=== PATIENT | female | born 1985 | race Two or more races ===

== ENCOUNTER 2016-10-18 09:27 | Outpatient (CLI) | payer SELFPAY | END 2016-10-18 09:28 | disposition home or self-care (01) | DX: E11.9 Type 2 diabetes mellitus without complications (principal) ==

== ENCOUNTER 2016-11-27 22:04 | Emergency (ER) | payer SELFPAY ==
[2016-11-27] MEDS ORDERED: KETOROLAC 30 MG/ML VIAL ONE (22:57)
[2016-11-27] MEDS ORDERED: ONDANSETRON 4 MG/2 ML VIAL ONE (22:57)
[2016-11-27] MEDS ORDERED: SODIUM CHLORIDE 0.9% 1,000 ML IV ONE (22:58)
[2016-11-27] MEDS ORDERED: KETOROLAC 60 MG/2 ML VIAL IVP STA (22:58)
[2016-11-27] MEDS ORDERED: ONDANSETRON 4 MG/2 ML VIAL IVP STA (22:58)
== END 2016-11-28 00:48 | disposition home or self-care (01) ==
DX: K80.80 Other cholelithiasis without obstruction (principal)

== ENCOUNTER 2017-02-12 07:17 | Outpatient (CLI) | payer SELFPAY | END 2017-02-12 23:59 | DX: E11.9 Type 2 diabetes mellitus without complications (principal) ==

== ENCOUNTER → 2017-05-17 | Outpatient (CLI) | payer SELFPAY ==
[2017-05-17 19:15] LABS: CREATININE 0.6 mg/dL (0.4-1.0); POTASSIUM 3.9 mmol/L (3.5-5.0)
[2017-05-17 19:16] LABS: HEMOGLOBIN A1C 0.76 g/dL
== END ==
LOC: LAB.N 08:00
PROVIDERS: ATTEND Family Medicine
DX: E11.9 Type 2 diabetes mellitus without complications (principal)
CPT/HCPCS: 36415; 80048; 83036

== ENCOUNTER 2017-05-30 13:29 | Outpatient (CLI) | payer OTHER ==
--- NOTE | 2017-05-30 15:40 | Ultrasound Report ---
RIGHT UPPER QUADRANT ULTRASOUND: 05/30/2017 CLINICAL INDICATION: Pain. COMPARISON: Preoperative ultrasound of 11/27/2016. TECHNIQUE: Real-time scanning was performed with appeals representative static images obtained. FINDINGS: The liver measures 17.1 cm. Hepatic echotexture is increased, compatible with fatty infilt ration. The common bile duct measures 4 mm. The gallbladder is surgically absent. The right kidney me asures 13.6 cm, and demonstrates no hydronephrosis. No free fluid is present. IMPRESSION: CHANGES OF CHOLECYSTECTOMY. NO EVIDENCE OF BILIARY DILATATION. FATTY INFILTRATION OF THE LIVER. JOB #: [id number] EXT JOB #:[id number]
== END 2017-05-30 13:30 | disposition home or self-care (01) ==
LOC: DI 13:29
PROVIDERS: ATTEND Family Medicine
DX: R10.11 Right upper quadrant pain (principal); K76.0 Fatty (change of) liver, not elsewhere classified; Z90.49 Acquired absence of other specified parts of digestive tract
CPT/HCPCS: 76705

== ENCOUNTER 2017-10-02 08:00 | Outpatient (CLI) | payer SELFPAY ==
[2017-10-02 19:13] LABS: CREATININE 0.6 mg/dL (0.4-1.0); POTASSIUM 4.1 mmol/L (3.5-5.0)
[2017-10-02 20:06] LABS: HEMOGLOBIN A1C 0.78 g/dL
== END 2017-10-02 08:01 | disposition home or self-care (01) ==
LOC: LAB.N 08:00
PROVIDERS: ATTEND Family Medicine
DX: E11.9 Type 2 diabetes mellitus without complications (principal)
CPT/HCPCS: 36415; 80048; 83036

== ENCOUNTER 2017-10-09 11:25 | Outpatient (CLI) | payer SELFPAY ==
[2017-10-09 19:10] LABS: ALBUMIN 3.9 g/dL (3.2-5.5); ALBUMIN/GLOBULIN RATIO 1.4 (1.0-2.2); BILIRUBIN,TOTAL 0.5 mg/dL (0.2-1.0); CREATININE 0.5 mg/dL (0.4-1.0); TOTAL PROTEIN 6.7 g/dL (6.7-8.2)
[2017-10-09 19:19] LABS: BASOPHILS % (AUTO) 0.5 %; EOSINOPHILS # (AUTO) 0.1 10^3/uL (0.0-0.7); EOSINOPHILS % (AUTO) 2.2 %; HGB - HEMOGLOBIN 13.4 g/dL (12.0-16.0); LYMPHOCYTES # (AUTO) 2.3 10^3/uL (1.5-3.5); LYMPHOCYTES % (AUTO) 33.8 %; MEAN CORPUSCULAR HEMOGLOBIN 28.9 pg (27.0-31.0); MEAN CORPUSCULAR HGB CONC 33.1 g/dL (32.0-36.0); MEAN CORPUSCULAR VOLUME 87.4 fL (81.0-99.0); MEAN PLATELET VOLUME 8.8 fL (7.9-10.8); MONOCYTES # (AUTO) 0.4 10^3/uL (0.0-1.0); MONOCYTES % (AUTO) 6.5 %; NEUTROPHILS # (AUTO) 3.9 10^3/uL (1.5-6.6); PLT - PLATELET COUNT 212 10^3/uL (130-450); RED BLOOD COUNT 4.63 10^6/uL (4.20-5.40); RED CELL DISTRIBUTION WIDTH 14.3 % (12.0-15.0); WHITE BLOOD COUNT 6.8 x10^3/uL (4.8-10.8)
== END 2017-10-09 11:26 | disposition home or self-care (01) ==
LOC: LAB.N 11:25
PROVIDERS: ATTEND Family Medicine
DX: R10.11 Right upper quadrant pain (principal)
CPT/HCPCS: 36415; 80053; 82150; 83690; 85025; 85651

== ENCOUNTER 2018-01-09 08:00 | Outpatient (CLI) | payer SELFPAY ==
[2018-01-09 19:15] LABS: CREATININE 0.6 mg/dL (0.4-1.0)
[2018-01-09 19:22] LABS: HB2 TOTAL 15.4 g/dL; HEMOGLOBIN A1C 0.84 g/dL; HEMOGLOBIN A1C % 7.1 % (4.6-6.2)
== END 2018-01-09 08:01 | disposition home or self-care (01) ==
LOC: LAB.N 08:00
PROVIDERS: ATTEND Family Medicine
DX: E11.9 Type 2 diabetes mellitus without complications (principal)
CPT/HCPCS: 36415; 80048; 83036

== ENCOUNTER 2018-02-04 20:59 | Outpatient (CLI) | payer SELFPAY ==
--- NOTE | 2018-02-05 09:45 | Ultrasound Report ---
PELVIC ULTRASOUND: 02/04/2018 CLINICAL INDICATION: Pelvic pain. COMPARISON: 03/05/2016. Transabdominal pelvic ultrasound performed for global evaluation. Transvaginal pelvic ultrasound performed for detailed evaluation. Real-time scanning performed and static images obtained. FINDINGS: The uterus is anteverted, measuring 9.6 x 6.2 x 3.3 cm. The endometrium measures 6 mm. No focal myometrial lesion is present. The ovaries are normal, with the right measuring 3.4 x 3.3 x 2.6 cm, and the left measuring 3.4 x 2.9 x 2.7 cm. No free fluid is present. IMPRESSION: NORMAL PELVIC ULTRASOUND. TD: 02/05/2018 09:44
== END 2018-02-04 21:00 | disposition home or self-care (01) ==
LOC: DI 20:59
PROVIDERS: ATTEND Obstetrics & Gynecology
DX: R10.2 Pelvic and perineal pain (principal)
CPT/HCPCS: 76830; 76856

== ENCOUNTER 2018-04-18 08:00 | Outpatient (CLI) | payer SELFPAY ==
[2018-04-18 13:07] LABS: CALCIUM 8.7 mg/dL (8.5-10.3); CREATININE 0.5 mg/dL (0.4-1.0)
[2018-04-18 13:10] LABS: HB2 TOTAL 14.6 g/dL; HEMOGLOBIN A1C 0.71 g/dL; HEMOGLOBIN A1C % 6.6 % (4.6-6.2)
== END 2018-04-18 08:01 | disposition home or self-care (01) ==
LOC: LAB.N 08:00
PROVIDERS: ATTEND Family Medicine
DX: F41.8 Other specified anxiety disorders (principal); E11.9 Type 2 diabetes mellitus without complications
CPT/HCPCS: 36415; 80048; 83036

== ENCOUNTER 2018-07-09 18:48 | Outpatient (CLI) | payer SELFPAY ==
--- NOTE | 2018-07-09 20:24 | Ultrasound Report ---
Reason: ENCOUNTER FOR ,RESULT POSITIVE/PT IS BLEE Procedure Date: 07/09/2018 Accession Number: [id number] / [id number] Procedure: US - OB First Trimester CPT Code: FULL RESULT: EXAM: FIRST TRIMESTER OBSTETRIC ULTRASOUND (Less than 11 weeks) EXAM DATE: 07/09/2018 08:00 PM. CLINICAL HISTORY: , vaginal bleeding. LMP: Unknown. COMPARISONS: None. TECHNIQUE: Transabdominal and transvaginal ultrasound examination with static image documentation. ASSESSMENT: Gestational Sac: Single intrauterine. Mean gestational sac diameter: 12 mm Embryo: CRL (crown-rump length) 6 mm = 6 weeks 2 days. Cardiac activity: 169 beats per minute. Yolk sac: 3 mm. Amniotic fluid: Not accurately assessed at this gestational age. Early placenta: Not visible at this gestational age. Other: No perigestational fluid collection demonstrated. MATERNAL STRUCTURES: Uterus: Anteverted. Unremarkable. Cervix: Closed. Right Ovary/Adnexa: Unremarkable. Left Ovary/Adnexa: Unremarkable. Free Fluid: None. Other: None. IMPRESSION: Single live intrauterine gestation. [place] Brow-rump length of 0.6 cm corresponds to an estimated gestational age by ultrasound of 6 weeks 2 days. heart rate is 169 bpm. No significant perigestational or adnexal abnormalities are seen. RADIA
== END 2018-07-09 18:49 | disposition home or self-care (01) ==
LOC: DI 18:48
PROVIDERS: ATTEND Nurse Practitioner Obstetrics & Gynecology
DX: Z32.01 Encounter for pregnancy test, result positive (principal)
CPT/HCPCS: 76801; 76817

== ENCOUNTER 2018-07-23 08:00 | Outpatient (CLI) | payer SELFPAY ==
[2018-07-23 19:06] LABS: ALBUMIN 3.6 g/dL (3.2-5.5); ALBUMIN/GLOBULIN RATIO 1.2 (1.0-2.2); ALKALINE PHOSPHATASE 57 IU/L (42-121); ALT ALANINE AMINOTRANSFERASE 71 IU/L (10-60); AST ASPARTATE AMINOTRANSFERASE 46 IU/L (10-42); BILIRUBIN,TOTAL 0.6 mg/dL (0.2-1.0); BUN - BLOOD UREA NITROGEN 7 mg/dL (6-20); CALCIUM 8.7 mg/dL (8.5-10.3); CARBON DIOXIDE - CO2 24 mmol/L (21-32); CHLORIDE 103 mmol/L (101-111); CHOLESTEROL 179 mg/dL; CREATININE 0.4 mg/dL (0.4-1.0); GFR - MDRD 184 (>89); GLUCOSE 94 mg/dL (70-100); HDL CHOLESTEROL 60 mg/dL; LDL CHOLESTEROL,CALCULATED 93 mg/dL; LDL/HDL RATIO 1.6 (<4.4); SODIUM 135 mmol/L (135-145); TOTAL PROTEIN 6.7 g/dL (6.7-8.2); VLDL CHOLESTEROL 26 mg/dL
[2018-07-23 19:34] LABS: HB2 TOTAL 13.3 g/dL; HEMOGLOBIN A1C 0.69 g/dL; HEMOGLOBIN A1C % 6.9 % (4.6-6.2)
== END 2018-07-23 08:01 | disposition home or self-care (01) ==
LOC: LAB.N 08:00
PROVIDERS: ATTEND Family Medicine
DX: E11.9 Type 2 diabetes mellitus without complications (principal); E66.9 Obesity, unspecified
CPT/HCPCS: 36415; 80053; 80061; 83036; 83721

== ENCOUNTER 2018-08-08 16:08 | Outpatient (CLI) | payer MEDICAID ==
[2018-08-08 16:33] LABS: BASOPHILS # (AUTO) 0.1 10^3/uL (0.0-0.1); EOSINOPHILS # (AUTO) 0.1 10^3/uL (0.0-0.7); EOSINOPHILS % (AUTO) 1.3 %; HGB - HEMOGLOBIN 12.9 g/dL (12.0-16.0); LYMPHOCYTES # (AUTO) 2.3 10^3/uL (1.5-3.5); LYMPHOCYTES % (AUTO) 29.4 %; MEAN CORPUSCULAR HEMOGLOBIN 29.5 pg (27.0-31.0); MEAN CORPUSCULAR HGB CONC 33.5 g/dL (32.0-36.0); MEAN PLATELET VOLUME 7.7 fL (7.9-10.8); MONOCYTES # (AUTO) 0.4 10^3/uL (0.0-1.0); MONOCYTES % (AUTO) 5.4 %; NEUTROPHILS # (AUTO) 4.8 10^3/uL (1.5-6.6); NEUTROPHILS % (AUTO) 62.9 %; PLT - PLATELET COUNT 217 10^3/uL (130-450); RED BLOOD COUNT 4.37 10^6/uL (4.20-5.40); RED CELL DISTRIBUTION WIDTH 14.4 % (12.0-15.0); WHITE BLOOD COUNT 7.7 x10^3/uL (4.8-10.8)
[2018-08-08 16:34] LABS: BILIRUBIN,URINE NEGATIVE (NEGATIVE); GLUCOSE, URINE (UA) NEGATIVE (NEGATIVE); KETONES,URINE (UA) NEGATIVE (NEGATIVE); LEUKOCYTE ESTERASE, URINE NEGATIVE (NEGATIVE); NITRITE,URINE NEGATIVE (NEGATIVE); OCCULT BLOOD,URINE NEGATIVE (NEGATIVE); PH,URINE 6.5 PH (5.0-7.5); PROTEIN,URINE NEGATIVE (NEGATIVE); UROBILINOGEN,URINE 0.2 (NORMAL) E.U./dL (NORMAL)
[2018-08-08 16:56] LABS: CLARITY,URINE CLEAR (CLEAR)
[2018-08-08 17:06] LABS: BACTERIA,URINE None Seen /HPF (None Seen); RBC,URINE 0-5 /HPF (0-5); SQUAMOUS EPITHELIAL CELL,UR NONE SEEN (<= Few)
[2018-08-08 17:14] LABS: THYROID STIMULATING HORMONE 1.72 uIU/mL (0.34-5.60)
[2018-08-08 17:16] LABS: FREE T4 (FREE THYROXINE) 0.65 ng/dL (0.58-1.64)
[2018-08-08 17:57] LABS: FREE T3 3.06 pg/mL (2.5-3.9)
[2018-08-08 19:28] LABS: HB2 TOTAL 13.2 g/dL; HEMOGLOBIN A1C 0.6 g/dL; HEMOGLOBIN A1C % 6.3 % (4.6-6.2)
[2018-08-09 11:27] LABS: HEPATITIS B SURFACE ANTIGEN NON-REACTIVE (NON-REACTIVE)
[2018-08-09 12:43] LABS: HIV AG/AB 4TH GEN NON-REACTIVE (NON-REACTIVE)
== END 2018-08-08 16:09 | disposition home or self-care (01) ==
LOC: LAB 16:08
PROVIDERS: ATTEND Obstetrics & Gynecology
DX: Z36.9 Encounter for antenatal screening, unspecified (principal); O24.111 Pre-existing type 2 diabetes mellitus, in pregnancy, first trimester; Z13.79 Encounter for other screening for genetic and chromosomal anomalies
CPT/HCPCS: 36415; 81001; 81599; 83036; 84439; 84443; 84481; 85025; 86592; 86762; 86850; 86900; 86901; 87340; 87389

== ENCOUNTER 2018-08-09 09:45 | Outpatient (CLI) | payer MEDICAID | END 2018-08-09 09:46 | disposition home or self-care (01) | LOC: LAB 09:45 | PROVIDERS: ATTEND Obstetrics & Gynecology | DX: O24.111 Pre-existing type 2 diabetes mellitus, in pregnancy, first trimester (principal); Z36.9 Encounter for antenatal screening, unspecified | CPT/HCPCS: 36415; 82947 ==

== ENCOUNTER 2018-09-13 13:08 | Outpatient (CLI) | payer SELFPAY | END 2018-09-13 13:09 | disposition home or self-care (01) | LOC: LAB 13:08 | PROVIDERS: ATTEND Obstetrics & Gynecology | DX: Z13.79 Encounter for other screening for genetic and chromosomal anomalies (principal) | CPT/HCPCS: 36415; 81599; 82677; 84163; 84702; 86336 ==

== ENCOUNTER 2018-10-23 12:34 | Outpatient (CLI) | payer OTHER ==
--- NOTE | 2018-10-23 16:03 | Ultrasound Report ---
Reason: DIABETES MELLITUS, PREGESTATIONAL Procedure Date: 10/23/2018 Accession Number: [id number] / [id number] Procedure: US - OB Detailed Eval CPT Code: FULL RESULT: EXAM: COMPLETE OBSTETRICAL ULTRASOUND EXAM DATE: 10/23/2018 03:36 PM. CLINICAL HISTORY: anatomic survey. LMP 05/29/2018 COMPARISON: 08/09/2018. TECHNIQUE: Real-time sonographic evaluation of the fetus performed by the bench chemist. Multiple event representative static images were saved for review. Additional transvaginal imaging to more accurately evaluate cervical length/placental position/etc. DATING: Established EGA 21 weeks 0 days with KONSTANTIN 03/05/2019 based on LMP. EGA 21 weeks 3 days with KONSTANTIN 03/02/2019 based on first ultrasound. EGA 21 weeks 1 day with KONSTANTIN 03/04/2019 based on the current ultrasound. GENERAL EVALUATION [place] . Cardiac activity: 148 bpm. movement: Present Presentation: Cephalic. Placenta: Posterior position. No evidence for previa. Umbilical cord: 3 vessel cord. Central placental cord origin. Amniotic fluid: Subjectively normal. MVP 5.3 cm. BIOMETRY Bi-Parietal Diameter (BPD): 5.1 cm, 21 weeks 2 days Head Circumference (HC): 19.2 cm, 21 weeks 2 days Abdominal Circumference (AC): 16.5 cm, 21 weeks 3 days Femur Length (FL): 3.4 cm, 20 weeks 5 days Estimated Weight: 408 grams. ANATOMY The intracranial structures, profile, face/nose/lips, spine, 4 chamber heart and outflow tracts, stomach, abdominal wall and cord insertion, diaphragm, kidneys, bladder, and extremities were imaged and demonstrate no abnormality. MATERNAL STRUCTURES Uterus: Unremarkable. Cervix: Long and closed. Transabdominal length 4.14 cm. Right ovary/adnexa: Unremarkable. Left ovary/adnexa: Unremarkable. Free fluid: None. IMPRESSION: 1. [place] intrauterine with gestational age 21 weeks 0 days based on LMP. 2. Estimated weight is within expected limits for assigned dating. 3. Normal anatomic survey. No anatomic abnormalities are detected at this time. RADIA
== END 2018-10-23 12:35 | disposition home or self-care (01) ==
LOC: DI 12:34
PROVIDERS: ATTEND Obstetrics & Gynecology
DX: O24.112 Pre-existing type 2 diabetes mellitus, in pregnancy, second trimester (principal); E11.9 Type 2 diabetes mellitus without complications; Z3A.21 21 weeks gestation of pregnancy
CPT/HCPCS: 76811

== ENCOUNTER 2018-10-30 10:28 | Outpatient (CLI) | payer SELFPAY ==
[2018-10-30 13:09] LABS: ALBUMIN 3.2 g/dL (3.2-5.5); BILIRUBIN,TOTAL 0.3 mg/dL (0.2-1.0); CREATININE 0.4 mg/dL (0.4-1.0); TOTAL PROTEIN 6.4 g/dL (6.7-8.2)
[2018-10-30 13:25] LABS: CALCIUM 8.8 mg/dL (8.5-10.3)
[2018-10-31 13:47] LABS: HEPATITIS C ANTIBODY NON-REACTIVE (NON-REACTIVE)
[2018-10-31 14:12] LABS: HEPATITIS B SURFACE ANTIGEN NON-REACTIVE (NON-REACTIVE)
[2018-10-31 19:39] LABS: HB2 TOTAL 12.7 g/dL; HEMOGLOBIN A1C 0.41 g/dL; HEMOGLOBIN A1C % 5.1 % (4.6-6.2)
== END 2018-10-30 23:59 | disposition home or self-care (01) ==
LOC: LAB.N 10:28
PROVIDERS: ATTEND Physician Assistant Medical
DX: R74.0 Nonspecific elevation of levels of transaminase and lactic acid dehydrogenase [LDH] (principal); E11.9 Type 2 diabetes mellitus without complications
CPT/HCPCS: 36415; 80053; 83036; 83540; 84466; 86317; 86704; 86709; 86803; 87340

== ENCOUNTER 2019-01-06 08:36 | Outpatient (CLI) | payer MEDICAID ==
[2019-01-06 09:11] VITALS: BP 117/72
== END 2019-01-06 09:45 | disposition home or self-care (01) ==
LOC: WFO 08:36 → FBP 08:39 → WFO 09:45
PROVIDERS: ATTEND Obstetrics & Gynecology
DX: O24.419 Gestational diabetes mellitus in pregnancy, unspecified control (principal); R10.2 Pelvic and perineal pain
CPT/HCPCS: 59025; 87480; 87510; 87660

== ENCOUNTER 2019-01-06 11:05 | Outpatient (CLI) | payer MEDICAID | END 2019-01-06 23:59 | disposition home or self-care (01) | LOC: LAB.R 11:05 | PROVIDERS: ATTEND Obstetrics & Gynecology | DX: R10.2 Pelvic and perineal pain (principal) | CPT/HCPCS: 87480; 87510; 87660 ==

== ENCOUNTER 2019-01-13 08:34 | Outpatient (CLI) | payer MEDICAID ==
[2019-01-13 08:43] VITALS: BP 127/81
== END 2019-01-13 09:32 | disposition home or self-care (01) ==
LOC: WFO 08:34 → FBP 08:36 → WFO 09:32
PROVIDERS: ATTEND Obstetrics & Gynecology
DX: O24.419 Gestational diabetes mellitus in pregnancy, unspecified control (principal); Z3A.32 32 weeks gestation of pregnancy
CPT/HCPCS: 59025

== ENCOUNTER 2019-01-20 08:59 | Outpatient (CLI) | payer MEDICAID ==
[2019-01-20 10:30] VITALS: BP 118/83
== END 2019-01-20 10:25 | disposition home or self-care (01) ==
LOC: WFO 08:59 → FBP 09:00 → WFO 10:25
PROVIDERS: ATTEND Obstetrics & Gynecology
DX: O24.419 Gestational diabetes mellitus in pregnancy, unspecified control (principal); Z3A.33 33 weeks gestation of pregnancy
CPT/HCPCS: 59025

== ENCOUNTER 2019-01-27 08:54 | Outpatient (CLI) | payer MEDICAID ==
[2019-01-27 09:12] VITALS: BP 133/80
== END 2019-01-27 09:35 | disposition home or self-care (01) ==
LOC: WFO 08:54 → FBP 08:55 → WFO 09:35
PROVIDERS: ATTEND Obstetrics & Gynecology
DX: O24.419 Gestational diabetes mellitus in pregnancy, unspecified control (principal); Z3A.34 34 weeks gestation of pregnancy
CPT/HCPCS: 59025

== ENCOUNTER 2019-02-03 08:57 | Outpatient (CLI) | payer MEDICAID ==
[2019-02-03 09:15] VITALS: BP 133/83
--- NOTE | 2019-02-26 11:47 | PROCEDURE REPORT ---
- HPI Diagnosis/Indication for NST: Gestational Diabetes Current EDU 03/05/19 Gestation 35 Weeks and 5 Days 5 Para 4 Vital Signs Temperature 98.8 F 02/03/19 09:10 Heart Rate 72 02/03/19 09:10 Respiratory Rate 18 02/03/19 09:10 Blood Pressure 133/83 H 02/03/19 09:10 O2 Saturation 100 02/03/19 09:10 Temperature 98.8 F 02/03/19 09:10 Heart Rate 72 02/03/19 09:10 Respiratory Rate 18 02/03/19 09:10 Blood Pressure 133/83 H 02/03/19 09:10 O2 Saturation 100 02/03/19 09:10 - NST Procedure NST Procedure Start Date 02/03/19 Start Time 09:06 Stop Time 09:36 Vibroacoustic Stimulation Used No Patient States Movement Yes - Results and Plan Findings/Impression: Category 1 NST Plan: Routine care for A2GDM
== END 2019-02-03 09:45 | disposition home or self-care (01) ==
LOC: WFO 08:57 → FBP 08:59 → WFO 09:45
PROVIDERS: ATTEND Obstetrics & Gynecology
DX: O24.419 Gestational diabetes mellitus in pregnancy, unspecified control (principal); Z3A.35 35 weeks gestation of pregnancy
CPT/HCPCS: 59025

== ENCOUNTER 2019-02-03 15:40 | Outpatient (CLI) | payer MEDICAID ==
[2019-02-03] MEDS ORDERED: TERBUTALINE 1 MG/ML VIAL SUBQ SCH (16:19)
[2019-02-03 17:22] LABS: BILIRUBIN,URINE NEGATIVE (NEGATIVE); GLUCOSE, URINE (UA) NEGATIVE (NEGATIVE); KETONES,URINE (UA) NEGATIVE (NEGATIVE); LEUKOCYTE ESTERASE, URINE TRACE (NEGATIVE); NITRITE,URINE NEGATIVE (NEGATIVE); OCCULT BLOOD,URINE NEGATIVE (NEGATIVE); PROTEIN,URINE NEGATIVE (NEGATIVE); UROBILINOGEN,URINE 0.2 (NORMAL) E.U./dL (NORMAL)
[2019-02-03 17:24] LABS: CLARITY,URINE CLEAR (CLEAR)
[2019-02-03 17:33] VITALS: BP 132/76
[2019-02-03 17:34] LABS: RBC,URINE None Seen /HPF (0-5); SQUAMOUS EPITHELIAL CELL,UR MOD Squamous (<= Few)
[2019-02-03 17:35] LABS: BACTERIA,URINE None Seen /HPF (None Seen)
--- NOTE | 2019-02-06 07:49 | PROCEDURE REPORT ---
- HPI Diagnosis/Indication for NST: Pre- Diabetes Current EDU 03/05/19 Gestation 35 Weeks and 5 Days 5 Para 4 Vital Signs Temperature 98.6 F 02/03/19 15:57 Heart Rate 77 02/03/19 15:57 Respiratory Rate 20 02/03/19 15:57 Blood Pressure 155/79 H 02/03/19 15:57 O2 Saturation 100 02/03/19 15:57 Temperature 98.6 F 02/03/19 15:57 Heart Rate 79 02/03/19 17:33 Respiratory Rate 18 02/03/19 17:33 Blood Pressure 132/76 H 02/03/19 17:33 O2 Saturation 99 02/03/19 17:33 - NST Procedure NST Procedure Start Time 09:06 Stop Time 09:36 - Results and Plan Findings/Impression: Category 1 UC 3-4 in 10min Plan: Pt seen and evaluated by Dr. Galindo. Terbutaline given due to UC at 35th week. Observed and UC ceased.
--- NOTE | 2019-02-06 08:04 | PROCEDURE REPORT ---
- HPI Diagnosis/Indication for NST: Gestational Diabetes Current EDU 03/05/19 Gestation 35 Weeks and 5 Days 5 Para 4 Vital Signs Temperature 98.6 F 02/03/19 15:57 Heart Rate 77 02/03/19 15:57 Respiratory Rate 20 02/03/19 15:57 Blood Pressure 155/79 H 02/03/19 15:57 O2 Saturation 100 02/03/19 15:57 Temperature 98.6 F 02/03/19 15:57 Heart Rate 79 02/03/19 17:33 Respiratory Rate 18 02/03/19 17:33 Blood Pressure 132/76 H 02/03/19 17:33 O2 Saturation 99 02/03/19 17:33 - NST Procedure NST Procedure Start Time 09:06 Stop Time 09:36 - Results and Plan Findings/Impression: Category 1 NST [place] neg Plan: routine care
== END 2019-02-03 17:45 | disposition home or self-care (01) ==
LOC: WFO 15:40 → FBP 15:41 → WFO 17:45
PROVIDERS: ATTEND Obstetrics & Gynecology
DX: O24.313 Unspecified pre-existing diabetes mellitus in pregnancy, third trimester (principal); O47.1 False labor at or after 37 completed weeks of gestation; Z3A.35 35 weeks gestation of pregnancy
CPT/HCPCS: 59025; 81001; 82731; 87086; 96372; 99213

== ENCOUNTER 2019-02-10 08:56 | Outpatient (CLI) | payer MEDICAID ==
[2019-02-10 09:40] VITALS: BP 133/80
--- NOTE | 2019-02-10 10:30 | Ultrasound Report ---
Reason: decreased movement Procedure Date: 02/10/2019 Accession Number: [id number] / [id number] Procedure: US - OB Limited CPT Code: FULL RESULT: EXAM: LIMITED OBSTETRICAL ULTRASOUND EXAM DATE: 02/10/2019 09:52 AM. CLINICAL HISTORY: Decreased movements. Third trimester . COMPARISON: 02/10/2019 10:13 AM. TECHNIQUE: Real-time sonographic evaluation of the fetus performed by the automatic glove turner and former. Multiple medical device sales representative static images were saved for review. DATING: Established EGA 36 weeks 5 days with KONSTANTIN 03/05/2019. GENERAL EVALUATION [place] . Cardiac activity: 157 bpm. Presentation: Breech Placenta: Posterior position. Amniotic fluid: Normal. KELLY 10.9 cm. MVP 3.8 cm. IMPRESSION: 1. [place] live intrauterine with gestational age 36 weeks 5 days based on established KONSTANTIN in breech presentation. 2. Normal amniotic fluid index, 10.9 cm. RADIA
--- NOTE | 2019-02-10 16:51 | PROCEDURE REPORT ---
- HPI Diagnosis/Indication for NST: Pre- Diabetes (and decreased movement) Current EDU 03/05/19 Gestation 36 Weeks and 5 Days 5 Para 4 Vital Signs Temperature 98.1 F 02/10/19 09:02 Heart Rate 70 02/10/19 09:02 Respiratory Rate 16 02/10/19 09:02 Blood Pressure 133/80 H 02/10/19 09:02 O2 Saturation 100 02/10/19 09:02 Temperature 98.1 F 02/10/19 09:02 Heart Rate 70 02/10/19 09:02 Respiratory Rate 16 02/10/19 09:02 Blood Pressure 133/80 H 02/10/19 09:02 O2 Saturation 100 02/10/19 09:02 - NST Procedure NST Procedure Start Date 02/10/19 Start Time 09:02 Stop Time 09:40 Vibroacoustic Stimulation Used No Patient States Movement No - Results and Plan Findings/Impression: Category 1 NST. BREECH. KELLY 11. Plan: Continue 1x per week NST with us and OB care in [place]. Copy of breech US report given to patient to show to her routine OB doctor. [facility] precautions.
== END 2019-02-10 10:55 | disposition home or self-care (01) ==
LOC: WFO 08:56 → FBP 09:29 → WFO 10:55
PROVIDERS: ATTEND Obstetrics & Gynecology
DX: O24.313 Unspecified pre-existing diabetes mellitus in pregnancy, third trimester (principal); E11.9 Type 2 diabetes mellitus without complications; O36.8130 Decreased fetal movements, third trimester, not applicable or unspecified; Z3A.36 36 weeks gestation of pregnancy; O32.1XX0 Maternal care for breech presentation, not applicable or unspecified
CPT/HCPCS: 59025; 76815

== ENCOUNTER 2019-03-12 10:45 | Outpatient (CLI) | payer MEDICAID ==
[2019-03-12 13:04] LABS: HB2 TOTAL 13.5 g/dL; HEMOGLOBIN A1C 0.51 g/dL; HEMOGLOBIN A1C % 5.6 % (4.6-6.2)
== END 2019-03-12 23:59 | disposition home or self-care (01) ==
LOC: LAB.N 10:45
PROVIDERS: ATTEND Physician Assistant Medical
DX: E11.9 Type 2 diabetes mellitus without complications (principal)
CPT/HCPCS: 36415; 83036

== ENCOUNTER 2019-04-10 18:41 | Outpatient (CLI) | payer MEDICAID | END 2019-04-10 18:42 | disposition critical access hospital (66) | LOC: EMS 18:41 | PROVIDERS: ATTEND Surgery | DX: R41.82 Altered mental status, unspecified (principal); R51 Headache; R42 Dizziness and giddiness; Y04.2XXA Assault by strike against or bumped into by another person, initial encounter | CPT/HCPCS: A0425; A0429; A0999 ==

== ENCOUNTER 2019-04-10 19:01 | Emergency (ER) | payer OTHER, MEDICAID ==
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
[2019-04-10 19:17] LABS: BASOPHILS % (AUTO) 0.3 %; EOSINOPHILS # (AUTO) 0.2 10^3/uL (0.0-0.7); EOSINOPHILS % (AUTO) 2.7 %; HGB - HEMOGLOBIN 13.3 g/dL (12.0-16.0); LYMPHOCYTES # (AUTO) 2.4 10^3/uL (1.5-3.5); LYMPHOCYTES % (AUTO) 31.9 %; MEAN CORPUSCULAR HEMOGLOBIN 27.6 pg (27.0-31.0); MEAN CORPUSCULAR HGB CONC 32.8 g/dL (32.0-36.0); MEAN PLATELET VOLUME 9.9 fL (7.9-10.8); MONOCYTES # (AUTO) 0.5 10^3/uL (0.0-1.0); MONOCYTES % (AUTO) 7.2 %; NEUTROPHILS # (AUTO) 4.3 10^3/uL (1.5-6.6); NEUTROPHILS % (AUTO) 57.5 %; PLT - PLATELET COUNT 219 10^3/uL (130-450); RED BLOOD COUNT 4.82 10^6/uL (4.20-5.40); RED CELL DISTRIBUTION WIDTH 13.4 % (12.0-15.0); WHITE BLOOD COUNT 7.5 x10^3/uL (4.8-10.8)
[2019-04-10 19:33] LABS: ACETAMINOPHEN < 10 ug/mL (10-30); ALBUMIN 4.1 g/dL (3.2-5.5); ALBUMIN/GLOBULIN RATIO 1.4 (1.0-2.2); ALKALINE PHOSPHATASE 64 IU/L (42-121); ALT ALANINE AMINOTRANSFERASE 36 IU/L (10-60); AST ASPARTATE AMINOTRANSFERASE 28 IU/L (10-42); BILIRUBIN,TOTAL 0.5 mg/dL (0.2-1.0); BUN - BLOOD UREA NITROGEN 15 mg/dL (6-20); CARBON DIOXIDE - CO2 21 mmol/L (21-32); CHLORIDE 103 mmol/L (101-111); GFR - MDRD 63 (>89); GLUCOSE 141 mg/dL (70-100); LIPASE 32 U/L (22-51); SALICYLATE < 6.0 mg/dL; SODIUM 138 mmol/L (135-145)
[2019-04-10 19:40] LABS: HCG,QUALITATIVE BLOOD NEGATIVE
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
[2019-04-10] MEDS ORDERED: ACETAMINOPHEN 325 MG TABLET PO STA (20:31)
[2019-04-10 20:41] VITALS: BP 146/105
== END 2019-04-10 20:52 | disposition home or self-care (01) ==
LOC: EDUNIT# → ED 19:01
DX: S06.0X9A Concussion with loss of consciousness of unspecified duration, initial encounter (principal); Y04.2XXA Assault by strike against or bumped into by another person, initial encounter; E11.9 Type 2 diabetes mellitus without complications; Z79.84 Long term (current) use of oral hypoglycemic drugs
CPT/HCPCS: 70450; 71045; 72125; 80053; 80320; 80329; 83690; 84703; 85025; 99283; 99285; A9270; 80307

== ENCOUNTER 2019-07-15 14:28 | Outpatient (CLI) | payer SELFPAY ==
[2019-07-15 19:02] LABS: HB2 TOTAL 14.5 g/dL; HEMOGLOBIN A1C 0.55 g/dL; HEMOGLOBIN A1C % 5.6 % (4.6-6.2)
== END 2019-07-15 23:59 ==
LOC: LAB.N 14:28
PROVIDERS: ATTEND Physician Assistant Medical
DX: E11.9 Type 2 diabetes mellitus without complications (principal)
CPT/HCPCS: 36415; 83036

== ENCOUNTER 2019-12-05 08:00 | Outpatient (CLI) | payer MEDICAID ==
[2019-12-05 19:53] LABS: HB2 TOTAL 14.5 g/dL; HEMOGLOBIN A1C 0.72 g/dL; HEMOGLOBIN A1C % 6.7 % (4.6-6.2)
== END 2019-12-05 23:59 | disposition home or self-care (01) ==
LOC: LAB.N 08:00
PROVIDERS: ATTEND Physician Assistant Medical
DX: E11.9 Type 2 diabetes mellitus without complications (principal)
CPT/HCPCS: 36415; 83036